=== PATIENT | male | born 1940 | race Caucasian/White ===

== ENCOUNTER 2022-12-08 10:47 | Day surgery (SDC) | payer MEDICARE, OTHER ==
[2022-12-03 10:45] VITALS: BMI 25.7
[~2022-12-08 10:47] MED LIST: HYDROmorphone 0.5 MG/0.5 ML SYRINGE IVP PRN; LACTATED RINGERS 1,000 ML IV SCH; LIDOCAINE 1% (10MG/ML) FOR IV START INTRADERMA PRN; ONDANSETRON 4 MG/2 ML VIAL IVP ONE; ceFAZolin 1,000 MG in SODIUM CHLORIDE 0.9% IRRIGATIO 1,000 ML IRRIGATION PRN
[2022-12-08] MEDS ORDERED: LACTATED RINGERS 1,000 ML IV ONE ×2 (10:59→12:43)
[2022-12-08 11:13] VITALS: TEMP 97
[2022-12-08] MEDS ORDERED: BUPIVACAIN-EPI 0.25%-1:200,000 30 ML VIAL SQ ONE (12:18)
[2022-12-08] MEDS ORDERED: ONDANSETRON 4 MG/2 ML VIAL IVP PRN (12:44)
[2022-12-08] MEDS ORDERED: CYCLOBENZAPRINE 5 MG TAB PO PRN (12:44)
[2022-12-08] MEDS ORDERED: HYDROmorphone 0.5 MG/0.5 ML SYRINGE IVP PRN (12:44)
[2022-12-08] MEDS ORDERED: BENZOCAINE/MENTHOL LOZENG 1 EACH LOZENGE MUCOUS MEM PRN (12:44)
[2022-12-08] MEDS ORDERED: HYDROcodone/APAP 5-325MG 1 EACH TAB PO PRN (12:44)
[2022-12-08] MEDS ORDERED: LEUPROLIDE ACETATE IM SCH (12:45)
[2022-12-08] MEDS ORDERED: SODIUM CHLORIDE 0.9% 1,000 ML IV SCH (12:45)
[2022-12-08] MEDS ORDERED: PRASUGREL HCL 5 MG PO SCH (12:45)
--- NOTE | 2022-12-08 12:51 | P.OP ---
Date of Procedure: 12/08/22 Preoperative Diagnosis: L1 compression fracture, dramatic due to a fall, Thoracolumbar back pain Degenerative scoliosis Degenerative spondylosis Postoperative Diagnosis: L1 compression fracture, dramatic due to a fall, Thoracolumbar back pain Degenerative scoliosis Degenerative spondylosis Anesthesia: GETA Pathology: other (L1 vertebral body biopsy to pathology) Condition: stable Disposition: PACU Description of Procedure: BRIEF OPERATIVE NOTE Preoperative Diagnosis: L1 compression fracture, dramatic due to a fall, Thoracolumbar back pain Degenerative scoliosis Degenerative spondylosis Postoperative Diagnosis: Same Procedure: Kyphoplasty of L1 Vertebral body biopsy of L1 Use of biplanar fluoroscopic guidance Surgeon: Dr. Park Tile Shader: Gonsalo Ricardo is present throughout the entire the case persistence during positioning, dissection, exposure, visualization, and all crucial elements of the case as well as closure. Anesthesia: General anesthesia Estimated blood loss: Less than 10 mL Specimen: Vertebral body biopsy sent to pathology in formalin Complications: None apparent Components implanted: Bone cement approximately 9 mL Disposition: To recovery room in good stable condition. OPERATIVE INDICATIONS The patient has been having issues in their back ever since sustaining an injur y. The patient has been through conservative treatment. They attempted conservative care with bracing however they're not having any benefit despite brace use. He had a significant L1 compression deformity due to a fall. His significant pain and change and was targeted around the L1 fracture and was new for him. He has a long history of lumbar issues and significant lumbar degeneration and spondylosis with scoliosis. We felt that is new symptoms stem from the fracture at L1 and he was not having any relief due to the fracture and was having minimal benefit despite conservative care. They continue to have significant pain and debility due to their fracture. We discussed various treatment options including surgery, and the patient wishes to proceed with surgery We discussed the risk, patient's alternatives and benefits of surgery including but not limited to, risk of bleeding risk of infection, risk of need for further surgery, risk of decreased, loss of motion, loss of function, cement extravasation, nerve damage, paralysis, heart attack, blindness and . OPERATIVE SUMMARY After discussing all the risks, patient alternatives and benefits at length, the patient elected to proceed with surgical intervention, signed informed consent, and presented for their procedure. The patient was seen and examined in the preoperative holding area and the surgical site was marked. The patient was given antibiotics and brought to the operating room. The patient was sedated and intubated by anesthesia in standard fashion. The patient was positioned on to the operating room table in a prone position on the appropriate well-padded and well molded bilateral chest rolls. We were careful to pad any bony prominences and pressure points. We were careful to maintain the patient's cervical spine and good neutral alignment and position throughout. We used 2 C-arm machines to establish biplanar fluoroscopic guidance in AP and lateral positions. We were able to localize the fractures appropriately. The patient was prepped and draped in a normal standard fashion. An appropriate timeout and keystone protocol performed. We were able to proceed with the surgery. The local wound area was infiltrated with local anesthetic at L1. An incision was made over the lateral aspect of the pedicle over the appropriate levels with a small 2 mm stab incision at L1 on the left. Intraoperative fluoroscopy was taken which showed a marker at the appropriate level at L1. With the appropriate level positively confirmed, I was able to position a sharp trocar over the lateral aspect of the pedicle. As able to advance the trocar into the pedicle and into the posterior aspect of vertebral body being careful to avoid penetration cephalad caudad or medially. The trocar was placed a ppropriately into the posterior aspect of vertebral body at the appropriate levels. This was confirmed with C-arm guidance. With the trocar intact I was then able to take a bone biopsy with a biopsy punch or a bony drill. The biopsy specimen was passed off to be sent to pathology in formalin. I was then able to place the kyphoplasty balloon within the vertebral body. The position was checked on C-arm. I was able to inflate the balloon under low pressure and visualization with C-arm. The balloon was well enclosed within the vertebral body. The cement was prepared. With the cement at appropriate working condition the balloons were deflated and removed. I was able to place bony cement with trocar with the cement delivery device under low pressure. It had good fill within the vertebral body. There is no evidence of any extravasation of the cement posteriorly toward the canal. The cement was well contained at the appropriate levels. The cement was allowed to cure appropriate ly. We were able to insert approximately 9 mL of bone cement. The trochars removed and final images were taken on C-arm. This showed the cement at the appropriate levels. We were able to proceed with closure. The wound was cleaned and dried and dressed with the appropriate dressing. The drapes were broken down. The patient was gently rolled back onto their hospital bed being careful to maintain their cervical spine and good neutral alignment and position. They were woken up by anesthesia, extubated, and brought to the recovery room in good stable condition. The patient will be admitted to the hospital for observation and for appropriate postoperative care, medical management and monitoring. We will continue to follow them closely about the postoperative course.
--- NOTE | 2022-12-08 12:53 | FL ---
Intraoperative/procedural fluoroscopic services were provided. Total fluoroscopy time is 63 seconds w ith a total of 2 submitted images to PACS. Please see the operative/procedural note for further detai ls.
[2022-12-08 13:23] VITALS: RESP 16
[2022-12-08 14:59] VITALS: BP 161/82; PULSE 86
[2022-12-08] MEDS ORDERED: BISOPROLOL 5 MG TAB PO SCH (21:00)
[2022-12-08] MEDS ORDERED: ATORVASTATIN 20 MG TAB PO SCH (21:00)
[2022-12-08] MEDS ORDERED: NON FORMULARY DRUG (Enzalutamide [Xtandi] 40 MG Capsule) PO SCH (21:00)
[2022-12-09] MEDS ORDERED: LEVOTHYROXINE 88 MCG TAB PO SCH (09:00)
== END 2022-12-08 14:44 | disposition home or self-care (01) ==
LOC: OR 10:47
PROVIDERS: ATTEND Orthopaedic Surgery Orthopaedic Surgery of the Spine
DX: M48.56XA Collapsed vertebra, not elsewhere classified, lumbar region, initial encounter for fracture (principal); M47.816 Spondylosis without myelopathy or radiculopathy, lumbar region; M41.56 Other secondary scoliosis, lumbar region; I25.2 Old myocardial infarction; I48.91 Unspecified atrial fibrillation; Z95.5 Presence of coronary angioplasty implant and graft; I34.1 Nonrheumatic mitral (valve) prolapse; G47.33 Obstructive sleep apnea (adult) (pediatric); Z87.891 Personal history of nicotine dependence; E03.9 Hypothyroidism, unspecified; Z79.890 Hormone replacement therapy; Z79.899 Other long term (current) drug therapy; W19.XXXA Unspecified fall, initial encounter
CPT/HCPCS: 72100; 22514; J0690 ×2; J2405; 88307; 88311